=== PATIENT | female | born 1970 | race Hispanic/Latino ===

== ENCOUNTER 2017-08-02 09:51 | Emergency (ER) | payer OTHER ==
[2017-08-02 10:49] LABS: Basophils % (Auto) 0.5 % (0.0-1.8); Eosinophils # (Auto) 0.1 K/mm3 (0.0-0.4); Eosinophils % (Auto) 1.3 % (0.0-4.3); Hematocrit 41.1 % (30.3-42.9); Hemoglobin 13.2 gm/dl (10.1-14.3); Lymphocytes # (Auto) 1.6 K/mm3 (1.2-5.4); Lymphocytes % (Auto) 19.8 % (13.4-35.0); Mean Corpuscular HGB Conc 32 % (30-34); Mean Corpuscular Hemoglobin 27 pg (28-32); Mean Corpuscular Volume 84 fl (79-97); Monocytes # (Auto) 0.7 K/mm3 (0.0-0.8); Monocytes % (Auto) 8.2 % (0.0-7.3); Platelet Count 295 K/mm3 (140-440); Red Blood Count 4.91 M/mm3 (3.65-5.03); Red Cell Distribution Width 16.4 % (13.2-15.2)
[2017-08-02 11:46] LABS: Bilirubin,Urine NEG (Negative); Color,Urine Red (Yellow)
[2017-08-02 11:47] LABS: Bacteria,Urine 1+ /HPF (Negative); Blood,Urine MOD (Negative); Nitrite,Urine NEG (Negative); Urobilinogen,Urine < 2.0 mg/dL (<2.0)
[2017-08-02 11:50] LABS: RBC,Urine > 182.0 /HPF (0.0-6.0)
[2017-08-02] MEDS ORDERED: NACL 0.9% 1000 ML 1,000 ML IV ONE (15:01)
[2017-08-02] MEDS ORDERED: TORADOL IV ONE (15:01)
[2017-08-02] MEDS ORDERED: ZOFRAN IV ONE (15:02)
[2017-08-02] MEDS ORDERED: MORPHINE IV ONE (15:02)
[2017-08-02] MEDS ORDERED: PEPCID IV ONE ×2 (16:15→16:16)
[2017-08-02 16:39] VITALS: BP 124/59
[2017-08-02] MEDS ORDERED: ALUM-MAG HYDROX-SIMETH 200-200-20MG/5ML PO ONE (17:10)
--- NOTE | 2017-08-02 17:19 | Emergency Department Report ---
ED General Adult HPI - General Chief complaint: Vaginal Bleeding Stated complaint: ABD PAIN/VAG BLEEDING Time Seen by Provider: 08/02/17 14:42 Source: patient Mode of arrival: Ambulatory Limitations: No Limitations - History of Present Illness Initial comments: Patient is a 46-year-old female with a past medical history of fibroids who has been having vaginal bleeding for approximately 21 days. Patient is on day 12 progesterone therapy. Patient states that she is now experiencing suprapubic tenderness. Patient denies any dysuria pain is 6 out of 10 in severity with no radiation. Patient denies any nausea vomiting diarrhea fevers chills cough at this time. Severity scale (0 -10): 2 - Related Data Previous Rx's Medication Instructions Recorded Last Taken Type HYDROcodone/APAP 5-325 [[place] 1 each PO Q4HR PRN #12 tablet 08/02/17 Unknown Rx 5/325] Nitrofurantoin Monohyd/M-Cryst 100 mg PO BID #14 capsule 08/02/17 Unknown Rx [Macrobid 100 mg Capsule] Allergies Allergy/AdvReac Type Severity Reaction Status Date / Time ofloxacin [From Floxin] Allergy Shortness Verified 08/02/17 10:12 of Breath Penicillins AdvReac Unknown Verified 08/02/17 10:12 Sulfa (Sulfonamide AdvReac Unknown Verified 08/02/17 10:12 Antibiotics) ED Review of Systems ROS: Stated complaint: ABD PAIN/VAG BLEEDING Other details as noted in HPI Comment: All other systems reviewed and negative ED Past Medical Hx - Past Medical History Hx Asthma: Yes Additional medical history: Fibroids - Surgical History Past Surgical History?: No - Social History Smoking Status: Never Smoker Substance Use Type: None - Medications Home Medications: Home Medications Medication Instructions Recorded Confirmed Last Taken Type HYDROcodone/APAP 5-325 [[place] 1 each PO Q4HR PRN #12 tablet 08/02/17 Unknown Rx 5/325] Nitrofurantoin Monohyd/M-Cryst 100 mg PO BID #14 capsule 08/02/17 Unknown Rx [Macrobid 100 mg Capsule] ED Physical Exam - General Limitations: No Limitations General appearance: alert, in no apparent distress - Head Head exam: Present: atraumatic, normocephalic - Eye Eye exam: Present: normal appearance - ENT ENT exam: Present: mucous membranes moist - Neck Neck exam: Present: normal inspection - Respiratory Respiratory exam: Present: normal lung sounds bilaterally. Absent: respiratory distress, wheezes, rales, rhonchi - Cardiovascular Cardiovascular Exam: Present: regular rate, normal rhythm. Absent: systolic murmur, diastolic murmur, rubs, gallop - GI/Abdominal GI/Abdominal exam: Present: soft, tenderness (suprapubic), normal bowel sounds. Absent: distended, guarding, rebound - Extremities Exam Extremities exam: Present: normal inspection - Back Exam Back exam: Present: normal inspection - Neurological Exam Neurological exam: Present: alert, oriented X3 - Psychiatric Psychiatric exam: Present: normal affect, normal mood - Skin Skin exam: Present: warm, dry, intact, normal color. Absent: rash ED Course Vital Signs 08/02/17 08/02/17 10:07 16:11 Temperature 98 F Pulse Rate 100 H 63 Respiratory 22 20 Rate Blood Pressure 130/90 Blood Pressure 124/59 [Left] O2 Sat by Pulse 99 100 Oximetry ED Medical Decision Making - Lab Data Result diagrams: 08/02/17 10:30 - Medical Decision Making Patient is a 46-year-old female with dysfunctional uterine bleeding. Patient's hemoglobin was within normal limits. Patient may have increased pain segmental urinary tract infection seen on urinalysis. Patient was started on antibiotics. Patient's pain in her abdomen was worsened by morphine she was given a GI cocktail and Pepcid. Patient be discharged home at this time Critical care attestation.: If time is entered above; I have spent that time in minutes in the direct care of this critically ill patient, excluding procedure time. ED Disposition Clinical Impression: DUB (dysfunctional uterine bleeding) Acute cystitis Qualifiers: Hematuria presence: with hematuria Qualified Code(s): N30.01 - Acute cystitis with hematuria Disposition: TO HOME OR SELFCARE Is pt being admited?: No Does the pt Need Aspirin: No Condition: Fair Instructions: Urinary Tract Infection in Women (ED), Dysfunctional Uterine Bleeding (ED) Prescriptions: HYDROcodone/APAP 5-325 [[place] 5/325] 1 each PO Q4HR PRN #12 tablet PRN Reason: Pain Nitrofurantoin Monohyd/M-Cryst [Macrobid 100 mg Capsule] 100 mg PO BID #14 capsule Referrals: FRANK DE LA TORRE PA [Primary Care Provider] - 3-5 Days
[2017-08-02] MEDS ORDERED: LEVSIN (NF) PO ONE (17:30)
== END 2017-08-02 17:44 | disposition home or self-care (01) ==
LOC: ED 09:51
DX: N30.01 Acute cystitis with hematuria (principal); N93.8 Other specified abnormal uterine and vaginal bleeding; J45.909 Unspecified asthma, uncomplicated
CPT/HCPCS: 36415; 81001; 84702; 85025; 86850; 86900; 86901; 93005; 93010; 96361; 96374; 96375; 99283; J1885; J2270; J2405; J7030